=== PATIENT | female | born 1960 | race Caucasian/White ===

== ENCOUNTER → 2016-11-21 | Outpatient (CLI) | payer BC ==
[~2016-11-21] MED LIST: AZIT250T94 PO; UDROBDM PO
--- NOTE | 2016-11-21 18:02 | RADRPT ---
PROCEDURE: XR Chest. CLINICAL INDICATION: Cough and fever. TECHNIQUE: Two views. Frontal and lateral. COMPARISON: 04/11/2015. FINDINGS: The lungs are clear. The heart size is normal. There is no pleural effusion or pneumothorax. There are old healed right rib fractures. IMPRESSION: 1. Old healed right rib fractures. 2. Otherwise normal chest radiograph. 3. No change from 04/11/2015. RPTAT: QQ .Aidan Ramos MD, MD Date Time Electronically viewed and signed by .Aidan Ramos MD, MD on 11/21/2016 18:02 .R/
== END | disposition home or self-care (01) ==
LOC: RAD 15:38
PROVIDERS: ATTEND Internal Medicine
DX: R05 Cough (principal); R50.9 Fever, unspecified
CPT/HCPCS: 71020

== ENCOUNTER → 2017-01-22 | Outpatient (CLI) | payer BC ==
--- NOTE | 2017-01-23 10:01 | RADRPT ---
PROCEDURE: XR hand. CLINICAL INDICATION: Pain TECHNIQUE: AP, lateral and oblique views of the left hand was obtained. COMPARISON: There are no similar studies submitted for comparison. FINDINGS: There is no acute fracture or dislocation. No osseous erosions are identified. There are some arthri tic changes within the first carpometacarpal joint. There is no soft tissue swelling. IMPRESSION: No acute fracture or dislocation. 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 RPTAT: HIKT .Giacomo Lara MD, MD Date Time Electronically viewed and signed by .Giacomo Lara MD, MD on 01/23/2017 00:30 .T/
== END | disposition home or self-care (01) ==
LOC: RAD 08:41
PROVIDERS: ATTEND Internal Medicine
DX: M79.642 Pain in left hand (principal)

== ENCOUNTER → 2018-02-16 | Outpatient (CLI) | END | disposition home or self-care (01) ==

== ENCOUNTER → 2018-04-02 | Outpatient (CLI) | END | disposition home or self-care (01) ==

== ENCOUNTER → 2018-06-29 | Outpatient (CLI) | payer BC ==
[~2018-06-29] MED LIST changes: +AZIT250T PO; -AZIT250T94 PO; +GUAI5SYR2 PO; -UDROBDM PO
== END | disposition home or self-care (01) ==
LOC: LAB 16:49
PROVIDERS: ATTEND Internal Medicine
DX: N34.2 Other urethritis (principal)
CPT/HCPCS: 80053; 81001; 85025; 87086

== ENCOUNTER → 2018-08-17 | Outpatient (CLI) | payer BC | END | disposition home or self-care (01) | LOC: RAD 15:04 | PROVIDERS: ATTEND Internal Medicine Rheumatology | DX: M25.561 Pain in right knee (principal); M25.562 Pain in left knee; M54.5 Low back pain | CPT/HCPCS: 72100 ==

== ENCOUNTER → 2018-09-07 | Outpatient (CLI) | payer BC | END | disposition home or self-care (01) | LOC: LAB 10:58 | PROVIDERS: ATTEND Internal Medicine | DX: J98.01 Acute bronchospasm (principal); R50.9 Fever, unspecified; I10 Essential (primary) hypertension | CPT/HCPCS: 71046; 80053; 85025 ==

== ENCOUNTER → 2018-11-19 | Outpatient (CLI) | payer BC | END | disposition home or self-care (01) | LOC: EKG 14:44 | PROVIDERS: ATTEND Internal Medicine | DX: R07.9 Chest pain, unspecified (principal) | CPT/HCPCS: 93005 ==

== ENCOUNTER → 2018-12-31 | Outpatient (CLI) | payer BC | END | disposition home or self-care (01) | LOC: RAD 14:45 | PROVIDERS: ATTEND Specialist | DX: M79.642 Pain in left hand (principal); M79.641 Pain in right hand | CPT/HCPCS: 73130 ==